=== PATIENT | male | born 1955 | race Caucasian/White ===

== ENCOUNTER 2018-02-15 12:39 | Observation (INO) | payer BC ==
[2018-02-15] MEDS ORDERED: IPRATROPIUM/ALBUTEROL 0.5-2.5 MG/3 ML AMPUL NEB ONE (13:15)
--- NOTE | 2018-02-15 13:19 | ER Document Report ---
ED Medical Screen (RME) - General Chief Complaint: Syncope Stated Complaint: WEAKNESS, SHORTNESS OF BREATH Time Seen by Provider: 02/15/18 13:07 Notes: 8-year-old male patient past history hypothyroid bones thyroid surgery, obstructive sleep apnea, hypertension, asthma recent diagnosis, hyperlipidemia. Reports traveling with a friend to [place] and along the way developed an inability to complete sentences, would forget what he was trying to say. When they arrived in [place] he got out of the car, stood up, felt dizzy and had a syncopal event. His friend caught him as he hit the ground and he did not strike his head. He was reportedly quite clammy, and complained of shortness of breath. He states it "took a while to feel back to normal". He reports this time he still does not feel completely normal, that he "feels out of it". He has shortness of breath. Brief exam shows wheezes predominantly on the left side. He does seem a little anxious. CT scan of the head, chest x-ray, DuoNeb treatments are ordered along with saline lock monitoring and lab work. I have greeted and performed a rapid initial assessment of this patient. A comprehensive ED assessment and evaluation of the patient, analysis of test results and completion of the medical decision making process will be conducted by additional ED providers. TRAVEL OUTSIDE OF THE [place] IN LAST 30 DAYS: No - Related Data Allergies/Adverse Reactions: No Known Allergies Allergy (Unverified 02/15/18 13:12) Past Medical History - Social History Chew tobacco use (# tins/day): No Frequency of alcohol use: None Drug Abuse: None Renal/ Medical History: Denies: Hx Peritoneal Dialysis Physical Exam - Vital signs Vitals: Temp Pulse Resp BP Pulse Ox 98.1 F 106 H 18 124/87 H 97 02/15/18 12:43 02/15/18 12:43 02/15/18 12:43 02/15/18 12:43 02/15/18 12:43 Course - Vital Signs Vital signs: Temp Pulse Resp BP Pulse Ox 98.1 F 106 H 18 124/87 H 97 02/15/18 12:43 02/15/18 12:43 02/15/18 12:43 02/15/18 12:43 02/15/18 12:43 - Laboratory Laboratory results interpreted by me: 02/15/18 12:47 POC Glucose 146 H
[2018-02-15 14:02] LABS: ABSOLUTE BASOPHILS # (AUTO) 0.1 10^3/uL (0.0-0.2); ABSOLUTE EOSINOPHILS # (AUTO) 0.5 10^3/uL (0.0-0.6); ABSOLUTE LYMPHOCYTES (AUTO) 1.7 10^3/uL (0.5-4.7); ABSOLUTE MONOCYTES (AUTO) 1.4 10^3/uL (0.1-1.4); ABSOLUTE NEUT (AUTO) 5.6 10^3/uL (1.7-8.2); BASOPHILS % (AUTO) 0.6 % (0-2); HEMATOCRIT 47.2 % (37.9-51.0); HEMOGLOBIN 15.9 g/dL (13.5-17.0); LYMPHOCYTES % (AUTO) 18.2 % (13-45); MEAN CORPUSCULAR HEMOGLOBIN 32.3 pg (27.0-33.4); MEAN CORPUSCULAR HGB CONC 33.7 g/dL (32.0-36.0); MEAN CORPUSCULAR VOLUME 96 fl (80-97); MONOCYTES % (AUTO) 14.9 % (3-13); PLATELET COUNT 251 10^3/uL (150-450); RED BLOOD COUNT 4.91 10^6/uL (4.35-5.55); SEGMENTED NEUTROPHILS % (AUTO) 61.3 % (42-78); TOTAL CELLS COUNTED % (AUTO) 100 %; WHITE BLOOD COUNT 9.2 10^3/uL (4.0-10.5)
[2018-02-15 14:21] LABS: ALANINE AMINOTRANSFERASE 33 U/L (21-72); ALBUMIN 4.7 g/dL (3.5-5.0); ALKALINE PHOSPHATASE 70 U/L (38-126); ANION GAP 12 (5-19); ASPARTATE AMINO TRANSFERASE 26 U/L (17-59); BILIRUBIN,DIRECT 0.3 mg/dL (0.0-0.4); BILIRUBIN,TOTAL 0.5 mg/dL (0.2-1.3); BLOOD UREA NITROGEN 28 mg/dL (7-20); CALCIUM 9.6 mg/dL (8.4-10.2); CARBON DIOXIDE 29 mmol/L (22-30); CHLORIDE 102 mmol/L (98-107); CREATINE KINASE 122 U/L (55-170); GLUCOSE 98 mg/dL (75-110); POTASSIUM 4.7 mmol/L (3.6-5.0); SODIUM 142.9 mmol/L (137-145); TOTAL PROTEIN 7.8 g/dL (6.3-8.2)
--- NOTE | 2018-02-15 14:37 | RADIOLOGY REPORT (SQ) ---
EXAM DESCRIPTION: CT HEAD WITHOUT COMPLETED DATE/TIME: 02/15/2018 2:04 pm REASON FOR STUDY: Confusion,difficulty completing sentences, syncope COMPARISON: None. TECHNIQUE: Axial images acquired through the brain without intravenous contrast. Images reviewed wi th bone, brain and subdural windows. Additional sagittal and coronal reconstructions were generated. Images stored on PACS. All CT scanners at this facility use dose modulation, iterative reconstruction, and/or weight based d osing when appropriate to reduce radiation dose to as low as reasonably achievable (ALARA). [facility]: Dose Right [facility]: CareDose [facility]: Dose Right [facility]: Teradose 4D [facility]: Smart [employer] RADIATION DOSE: CT Rad equipment meets quality standard of care and radiation dose reduction techniq ues were employed. CTDIvol: 53.2 mGy. DLP: 1070 mGy-cm. mGy. LIMITATIONS: None. FINDINGS: VENTRICLES: Normal size and contour. CEREBRUM: No masses. No hemorrhage. No midline shift. No evidence for acute infarction. Normal gra y/white matter differentiation. No areas of low density in the white matter. CEREBELLUM: No masses. No hemorrhage. No alteration of density. No evidence for acute infarction. EXTRAAXIAL SPACES: No fluid collections. No masses. ORBITS AND GLOBE: No intra- or extraconal masses. Normal contour of globe without masses. CALVARIUM: No fracture. PARANASAL SINUSES: No fluid or mucosal thickening. SOFT TISSUES: No mass or hematoma. OTHER: No other significant finding. IMPRESSION: NORMAL BRAIN CT WITHOUT CONTRAST. EVIDENCE OF ACUTE STROKE: NO. COMMENT: Quality ID # [id number]: Final reports with documentation of one or more dose reduction techniques (e.g., Automated exposure control, adjustment of the mA and/or kV according to patient size, use of iterative reconstruction technique) TECHNICAL DOCUMENTATION: JOB ID: [id number] [employer]- All Rights Reserved Reading location - IP/workstation name: [email or web address]
--- NOTE | 2018-02-15 14:55 | RADIOLOGY REPORT (SQ) ---
EXAM DESCRIPTION: CHEST 2 VIEWS COMPLETED DATE/TIME: 02/15/2018 2:17 pm REASON FOR STUDY: Wheezing, shortness of breath COMPARISON: 05/12/2010 EXAM PARAMETERS: NUMBER OF VIEWS: two views TECHNIQUE: Digital Frontal and Lateral radiographic views of the chest acquired. RADIATION DOSE: NA LIMITATIONS: none FINDINGS: LUNGS AND PLEURA: No opacities, masses or pneumothorax. No pleural effusion. MEDIASTINUM AND HILAR STRUCTURES: No masses or contour abnormalities. HEART AND VASCULAR STRUCTURES: Heart normal size. No evidence for failure. BONES: No acute findings. HARDWARE: None in the chest. OTHER: No other significant finding. IMPRESSION: NO ACUTE RADIOGRAPHIC FINDING IN THE CHEST. TECHNICAL DOCUMENTATION: JOB ID: [id number] [employer]- All Rights Reserved Reading location - IP/workstation name: [email or web address]
[2018-02-15] MEDS ORDERED: ASPIRIN 325 MG TABLET PO ONE (15:05)
--- NOTE | 2018-02-15 15:16 | ER Document Report ---
ED General - General Chief Complaint: Syncope Stated Complaint: WEAKNESS, SHORTNESS OF BREATH Time Seen by Provider: 02/15/18 13:07 Mode of Arrival: Ambulatory Information source: Patient Notes: 62-year-old male presents with complaints of sudden episode of confusion. Patient notes he was driving all of a sudden became dizzy lightheaded could not understand what he was, patient notes he stopped the car and had a syncopal episode TRAVEL OUTSIDE OF THE [place] IN LAST 30 DAYS: No - HPI Onset: Just prior to arrival Onset/Duration: Sudden Quality of pain: No pain Severity: Mild Pain Level: Denies Associated symptoms: Weakness, Other Exacerbated by: Denies Relieved by: Denies Similar symptoms previously: No Recently seen / treated by doctor: No - Related Data Allergies/Adverse Reactions: No Known Allergies Allergy (Unverified 02/15/18 13:12) Past Medical History - Social History Smoking Status: Never Smoker Cigarette use (# per day): No Chew tobacco use (# tins/day): No Smoking Education Provided: No Frequency of alcohol use: None Drug Abuse: None Family History: Reviewed & Not Pertinent Patient has suicidal ideation: No Patient has homicidal ideation: No Pulmonary Medical History: Reports: Hx Asthma, Hx Bronchitis Renal/ Medical History: Denies: Hx Peritoneal Dialysis Psychiatric Medical History: Reports: Hx Depression Past Surgical History: Reports: Hx Kidney (Renal Surgery) - lithotripsy, Hx Nose Surgery - rhinoplasty Review of Systems - Review of Systems Notes: REVIEW OF SYSTEMS: CONSTITUTIONAL : Denies fever, chills, or sweats. Denies recent illness. EENT: Denies eye, ear, throat, or mouth pain or symptoms. Denies nasal or sinus congestion or discharge. Denies throat, tongue, or mouth swelling or difficulty swallowing. CARDIOVASCULAR: Denies chest pain. Denies palpitations or racing or irregular heart beat. Denies ankle edema. RESPIRATORY: Denies cough, cold, or chest congestion. Denies shortness of breath, difficulty breathing, or wheezing. GASTROINTESTINAL: Denies abdominal pain or distention. Denies nausea, vomiting , or diarrhea. Denies blood in vomitus, stools, or per rectum. Denies black, tarry stools. Denies constipation. GENITOURINARY: Denies difficulty urinating, painful urination, burning, frequency, blood in urine, or discharge. MUSCULOSKELETAL: Denies back or neck pain or stiffness. Denies joint pain or swelling. SKIN: Denies rash, lesions or sores. HEMATOLOGIC : Denies easy bruising or bleeding. LYMPHATIC: Denies swollen, enlarged glands. NEUROLOGICAL: Admits to confusion PSYCHIATRIC: Denies anxiety or stress. Denies depression, suicidal ideation, or homicidal ideation. ALL OTHER SYSTEMS REVIEWED AND NEGATIVE. Dictation was performed using [employer] voice recognition software PHYSICAL EXAMINATION: GENERAL: Well-appearing, well-nourished and in no acute distress. HEAD: Atraumatic, normocephalic. EYES: Pupils equal round and reactive to light, extraocular movements intact, sclera anicteric, conjunctiva are normal. ENT: Nares patent, oropharynx clear without exudates. Moist mucous membranes. NECK: Normal range of motion, supple without lymphadenopathy LUNGS: Breath sounds clear to auscultation bilaterally and equal. No wheezes rales or rhonchi. HEART: Regular rate and rhythm without murmurs ABDOMEN: Soft, nontender, nondistended abdomen. No guarding, no rebound. No masses appreciated. Musculoskeletal: Normal range of motion, no pitting or edema. No cyanosis. NEUROLOGICAL: Cranial nerves grossly intact. Normal speech, normal gait. Normal sensory, motor exams PSYCH: Normal mood, normal affect. SKIN: Warm, Dry, normal turgor, no rashes or lesions noted. Physical Exam - Vital signs Vitals: Temp Pulse Resp BP Pulse Ox 98.1 F 106 H 18 124/87 H 97 02/15/18 12:43 02/15/18 12:43 02/15/18 12:43 02/15/18 12:43 02/15/18 12:43 Course - Re-evaluation Re-evalutation: 02/18/18 22:32 Currently patient is asymptomatic however given her presentation I do believe a CVA rule out is appropriate, I do believe he had a transient ischemic attack, patient is not a candidate for thrombolytics CT of the head was negative - Vital Signs Vital signs: Temp Pulse Resp BP Pulse Ox 98.6 F 118 H 16 101/74 92 02/18/18 16:19 02/18/18 16:19 02/18/18 16:19 02/18/18 16:19 02/18/18 16:19 - Laboratory Result Diagrams: 02/15/18 13:28 02/16/18 05:25 Laboratory results interpreted by me: 02/15/18 02/15/18 02/15/18 12:47 13:28 13:28 Monocytes % 14.9 H BUN 28 H Creatinine 1.28 H Est GFR (Non-Af Amer) 57 L POC Glucose 146 H - Diagnostic Test Radiology reviewed: Image reviewed - CT head without contrast noted no acute abnormality, Reports reviewed Discharge - Discharge Clinical Impression: TIA (transient ischemic attack) Qualifiers: Transient cerebral ischemia type: unspecified Qualified Code(s): G45.9 - Transient cerebral ischemic attack, unspecified Condition: Good Disposition: ADMITTED OBSERVATION Admitting Provider: Hospitalist Unit Admitted: IMCU
--- NOTE | 2018-02-15 15:35 | RADIOLOGY REPORT (SQ) ---
EXAM DESCRIPTION: CTA CHEST COMPLETED DATE/TIME: 02/15/2018 3:23 pm REASON FOR STUDY: sob COMPARISON: None. TECHNIQUE: CT scan of the chest performed using helical scanning technique with dynamic intravenous contrast injection. Images reviewed with lung, soft tissue and bone windows. Reconstructed coronal and sagittal MPR images reviewed. Additional 3 dimensional post-processing performed to develop Maximal Intensity Projection images (IA P). All images stored on PACS. All CT scanners at this facility use dose modulation, iterative reconstruction, and/or weight based d osing when appropriate to reduce radiation dose to as low as reasonably achievable (ALARA). [facility]: Dose Right [facility]: CareDose [facility]: Dose Right [facility]: Teradose 4D [facility]: Prescription Eyewear CONTRAST TYPE AND DOSE: contrast/concentration: Isovue 370.00 mg/ml; Total Contrast Delivered: 82.0 ml; Total Saline Delivered: 90.1 ml Contrast bolus optimized for the pulmonary arteries. Not diagnostic for the aorta. RENAL FUNCTION: Creatinine 1.28 RADIATION DOSE: CT Rad equipment meets quality standard of care and radiation dose reduction techniq ues were employed. CTDIvol: 16.5 - 23.1 mGy. DLP: 952 mGy-cm. . LIMITATIONS: None. FINDINGS: LUNGS AND PLEURA: No masses, infiltrates, pneumothorax. No pleural effusions, calcificati ons. AORTA AND GREAT VESSELS: No aneurysm. Contrast bolus not optimized for the aorta. HEART: No pericardial effusion. No significant coronary artery calcifications. PULMONARY ARTERIES: Heterogeneous low density in the distal main pulmonary arteries and extending int o the proximal lower lobe segmental branches bilaterally. Difficult to define well-circumscribed emb olus. While some of this may be artifact, the findings are considered concerning for nonocclusive cl ot. HILAR AND MEDIASTINAL STRUCTURES: No identified masses or abnormal nodes. HARDWARE: None in the chest. UPPER ABDOMEN: No significant findings. Limited exam. THYROID AND OTHER SOFT TISSUES: No masses. No adenopathy. BONES: No acute or significant finding. 3D MIPS: Confirm above findings. OTHER: No other significant finding. IMPRESSION: 1. Concerning for a subtle nonocclusive bilateral pulmonary embolus. COMMENT: Quality ID # [id number]: Final reports with documentation of one or more dose reduction techniques (e.g., Automated exposure control, adjustment of the mA and/or kV according to patient size, use of iterative reconstruction technique) TECHNICAL DOCUMENTATION: JOB ID: [id number] [email or web address]- All Rights Reserved Reading location - IP/workstation name: [email or web address]
--- NOTE | 2018-02-15 16:49 | PDOC H&P ---
History of Present Illness Admission Date/PCP: 02/15/18 15:30 LEROY SMITH MD Patient complains of: acute onset confusion and garbled speech History of Present Illness: BRITTNEE RICHARDSON is a 62 year old male with history of HTN, HLD, hypothyroidism, HUGO , and depression who presents to the ED for evaluation of acute mental status change. Patient was in usual health today. He was driving to [place] with his friend. Upon reaching his destination, he left the car and upon standing up noted "something was not right". He thinking became garbled, his speech altered , and felt very unsteady on his feet. After a few second, he had a near syncopal episode. He fell towards the ground but was caught by his friend. Did not hit his head. Denies LOC. States this has never happened before. Was placed back in car and drove back to [place] to the ER. Upon reaching here, has returned back to baseline. Notes that he has not been feeling well over the last 2-3 days. Was diagnosed with bronchitis. Also notes mild SOB and was diagnosed with asthma and sleep apnea (unclear how these diagnoses were made). Denies fevers, chills, CP, abdominal pain, NV. PO intake has been good. Does not feel dehydrated. In ER labs were largely unremarkable except for Cr 1.28 ( baseline unknown). CTH negative. Will admit to hospitalist service for TIA work up Past Medical History Cardiac Medical History: Reports: Hyperlipidema, Hypertension Pulmonary Medical History: Reports: Asthma, Bronchitis Psychiatric Medical History: Reports: Depression Social History Information Source: Patient Smoking Status: Never Smoker Frequency of Alcohol Use: None Hx Recreational Drug Use: No Hx Prescription Drug Abuse: No Family History Family History: Malignancy Parental Family History Reviewed: Yes - father with cancer Children Family History Reviewed: Yes Sibling(s) Family History Reviewed.: No Medication/Allergy Home Medications: Amitriptyline HCl 25 mg PO DAILY 02/15/18 Atorvastatin Calcium 20 mg PO DAILY 02/15/18 Bupropion HCl [Wellbutrin Xl] 150 mg PO DAILY 02/15/18 Escitalopram Oxalate 20 mg PO DAILY 02/15/18 Levothyroxine Sodium 75 mcg PO DAILY 02/15/18 Losartan Potassium [Cozaar] 200 mg PO DAILY 02/15/18 Meloxicam 7.5 mg PO DAILY 02/15/18 Omeprazole 40 mg PO DAILY 02/15/18 Tamsulosin HCl 0.4 mg PO DAILY 02/15/18 Allergies/Adverse Reactions: No Known Allergies Allergy (Unverified 02/15/18 13:12) Physical Exam Vital Signs: Temp Pulse Resp BP Pulse Ox 98.1 F 106 H 20 120/77 94 02/15/18 12:43 02/15/18 12:43 02/15/18 15:35 02/15/18 15:35 02/15/18 15:35 General appearance: PRESENT: no acute distress, obese Head exam: PRESENT: normocephalic Mouth exam: PRESENT: moist Respiratory exam: PRESENT: unlabored. ABSENT: tachypnea, wheezes Cardiovascular exam: PRESENT: +S1, +S2. ABSENT: systolic murmur, tachycardia GI/Abdominal exam: PRESENT: soft. ABSENT: tenderness Neurological exam: PRESENT: alert, awake, oriented to time, oriented to situation, CN II-XII grossly intact Psychiatric exam: PRESENT: appropriate affect Results Impressions: Chest X-Ray 02/15/18 13:15 IMPRESSION: NO ACUTE RADIOGRAPHIC FINDING IN THE CHEST. Head CT 02/15/18 13:15 IMPRESSION: NORMAL BRAIN CT WITHOUT CONTRAST. EVIDENCE OF ACUTE STROKE: NO. Chest/Abdomen CTA 02/15/18 15:04 IMPRESSION: 1. Concerning for a subtle nonocclusive bilateral pulmonary embolus. Assessment & Plan - Diagnosis (1) TIA (transient ischemic attack) Qualifiers: Transient cerebral ischemia type: unspecified Qualified Code(s): G45.9 - Transient cerebral ischemic attack, unspecified Is this a current diagnosis for this admission?: Yes Plan: Differential diagnosis includes TIA vs. syncope. Patient has risk factors including HTN, HLD, and obesity. Given uncertainty of etiology, will proceed with TIA work up including: - MRI Brain - Carotid dopplers - TTE - Labs: HgA1c, lipid profile - Received ASA 324mg in ED, continue ASA 81mg - Increased statin to Lipitor 40mg qhs - PT consult - platen builder up - Neuro checks every shift - Admit to obs (2) HTN (hypertension) Qualifiers: Hypertension type: essential hypertension Qualified Code(s): I10 - Essential (primary) hypertension Plan: Restarted home Cozaar in AM - Would be OK with permissive HTN until that period (3) HLD (hyperlipidemia) Plan: Checking lipid profile - Lipitor 40mg per above (4) Depression Is this a current diagnosis for this admission?: Yes Plan: Continue home Wellbutrin and Elavil - Time Time Spent: 50 to 70 Minutes Critical Time spent with patient: 15-24 minutes Anticipated discharge: Home Within: within 24 hours
--- NOTE | 2018-02-15 18:01 | RADIOLOGY REPORT (SQ) ---
EXAM DESCRIPTION: MRI HEAD WITHOUT COMPLETED DATE/TIME: 02/15/2018 5:30 pm REASON FOR STUDY: TIA COMPARISON: Its CT brain same date TECHNIQUE: Multiplanar imaging includes non-contrasted T1, T2, FLAIR, and diffusion with ADC map seq uences. Heme sensitive sequence. Images stored on PACS. LIMITATIONS: None. FINDINGS: ANATOMY: No anomalies. Normal vascular flow voids. Pituitary fossa normal. CSF SPACES: Normal in size and contour. No hemorrhage. CEREBRUM: Sulci and gyri normal in size and contour. Normal white matter signal on FLAIR imaging. No evidence of hemorrhage, mass, or extraaxial fluid collection. POSTERIOR FOSSA: No signal alteration. No hemorrhage. No edema, masses or mass effect. Internal ann tory canals, cerebello-pontine angles, mastoids normal. DIFFUSION IMAGING: Negative for acute or sub-acute infarction. ORBITS: No masses. Globes normal. PARANASAL SINUSES: No fluid levels. Mucosa normal. OTHER: No other significant finding. IMPRESSION: NORMAL MRI OF THE BRAIN WITHOUT INTRAVENOUS GADOLINIUM CONTRAST. EVIDENCE OF ACUTE STROKE: NO. TECHNICAL DOCUMENTATION: JOB ID: [id number]- All Rights Reserved Reading location - IP/workstation name: [email or web address]
[2018-02-15] MEDS ORDERED: ENOXAPARIN SODIUM INJ 40 MG/0.4 ML DISP.SYRIN SUBCUT ONE (20:00)
[2018-02-15] MEDS ORDERED: ALBUTEROL SULFATE HFA (90 MCG/PUFF) 200 PUFF/8.5 GM MDI IH PRN (21:48)
[2018-02-15] MEDS: AMITRIPTYLINE HCL 25 MG TABLET PO SCH (22:02)
[2018-02-15] MEDS: ATORVASTATIN CALCIUM 40 MG TABLET PO SCH (22:02)
[2018-02-15] MEDS: TAMSULOSIN HCL 0.4 MG CAP.SR.24H PO SCH (22:03)
[2018-02-16] MEDS: LEVOTHYROXINE SODIUM 0.075 MG TABLET PO SCH (05:20)
[2018-02-16 05:59] LABS: ANION GAP 12 (5-19); BLOOD UREA NITROGEN 20 mg/dL (7-20); CALCIUM 9.3 mg/dL (8.4-10.2); CARBON DIOXIDE 30 mmol/L (22-30); CHLORIDE 100 mmol/L (98-107); CHOLESTEROL 165.82 mg/dL (0-200); GLUCOSE 108 mg/dL (75-110); POTASSIUM 4.7 mmol/L (3.6-5.0); SODIUM 142.4 mmol/L (137-145); TRIGLYCERIDES 147 mg/dL (<150)
[2018-02-16 06:10] LABS: DIRECT LDL 82 mg/dL (<100)
[2018-02-16] MEDS: LOSARTAN POTASSIUM 50 MG TABLET PO SCH (09:46)
[2018-02-16] MEDS: LANSOPRAZOLE 30 MG TAB.RAP.DR PO SCH (09:46)
[2018-02-16] MEDS: ENOXAPARIN SODIUM INJ 40 MG/0.4 ML DISP.SYRIN SUBCUT SCH (09:47)
[2018-02-16] MEDS: BUPROPION HCL 100 MG TABLET PO SCH (09:47)
[2018-02-16] MEDS ORDERED: AMITRIPTYLINE HCL 25 MG TABLET PO SCH (10:00)
[2018-02-16] MEDS ORDERED: TAMSULOSIN HCL 0.4 MG CAP.SR.24H PO SCH (10:00)
[2018-02-16] MEDS ORDERED: BUPROPION HCL 150 MG PO SCH (10:00)
[2018-02-16] MEDS ORDERED: LOSARTAN POTASSIUM 200 MG PO SCH (10:00)
--- NOTE | 2018-02-16 11:37 | PDOC PROGRESS REPORT ---
Subjective Progress Note for:: 02/16/18 Subjective:: NO overnight events. Feeling at baseline. Had brain MRI. No speech deficits, focal weakness/numbness. No other complaints. Reason For Visit: TIA Physical Exam Vital Signs: Temp Pulse Resp BP Pulse Ox 97.7 F 91 18 139/90 H 98 02/16/18 07:12 02/16/18 08:00 02/16/18 08:00 02/16/18 08:00 02/16/18 08:00 Intake & Output 02/15/18 02/16/18 02/17/18 06:59 06:59 06:59 Intake Total 443 Output Total 425 Balance 18 Weight 107.2 kg General appearance: PRESENT: no acute distress, cooperative, obese Respiratory exam: PRESENT: unlabored. ABSENT: tachypnea Cardiovascular exam: PRESENT: +S1, +S2. ABSENT: tachycardia GI/Abdominal exam: PRESENT: soft. ABSENT: tenderness Extremities exam: PRESENT: full ROM Musculoskeletal exam: PRESENT: ambulatory Neurological exam: PRESENT: alert, awake, reflexes normal, CN II-XII grossly intact. ABSENT: motor sensory deficit, aphasic Psychiatric exam: PRESENT: appropriate affect Results Laboratory Results: 02/16/18 05:25 02/16/18 05:25 Sodium 142.4 Potassium 4.7 Chloride 100 Carbon Dioxide 30 Anion Gap 12 BUN 20 Creatinine 1.06 Est GFR ( Amer) > 60 Est GFR (Non-Af Amer) > 60 Glucose 108 Calcium 9.3 Triglycerides 147 Cholesterol 165.82 LDL Cholesterol Direct 82 VLDL Cholesterol 29.0 HDL Cholesterol 52 Impressions: Chest X-Ray 02/15/18 13:15 IMPRESSION: NO ACUTE RADIOGRAPHIC FINDING IN THE CHEST. Head CT 02/15/18 13:15 IMPRESSION: NORMAL BRAIN CT WITHOUT CONTRAST. EVIDENCE OF ACUTE STROKE: NO. Chest/Abdomen CTA 02/15/18 15:04 IMPRESSION: 1. Concerning for a subtle nonocclusive bilateral pulmonary embolus. Head MRI 02/15/18 16:08 IMPRESSION: NORMAL MRI OF THE BRAIN WITHOUT INTRAVENOUS GADOLINIUM CONTRAST. EVIDENCE OF ACUTE STROKE: NO. Assessment & Plan - Diagnosis (1) TIA (transient ischemic attack) Qualifiers: Transient cerebral ischemia type: unspecified Qualified Code(s): G45.9 - Transient cerebral ischemic attack, unspecified Is this a current diagnosis for this admission?: Yes Plan: Differential diagnosis includes TIA vs. syncope. Patient has risk factors including HTN, HLD, and obesity. Given uncertainty of etiology, will proceed with TIA work up including: - MRI Brain obtained and negative for acute pathology - Carotid dopplers and TTE pending - HgA1c 5.7% and lipid profile wnl - Received ASA 324mg in ED, continue ASA 81mg, Lipitor 40mg qhs - Discontinue quality assurance monitor chassis and neuro checks - Patient prefers for work up to be completed prior to discharge (2) HTN (hypertension) Qualifiers: Hypertension type: essential hypertension Qualified Code(s): I10 - Essential (primary) hypertension Is this a current diagnosis for this admission?: Yes Plan: BP's acceptable, continue home Cozaar (3) HLD (hyperlipidemia) Is this a current diagnosis for this admission?: Yes Plan: Lipid profile acceptable - Lipitor 40mg per above (4) Depression Is this a current diagnosis for this admission?: Yes Plan: Continue home Wellbutrin and Elavil (5) Obesity (BMI 30.0-34.9) Is this a current diagnosis for this admission?: Yes Plan: Encouraged healthy lifestyle (6) Pulmonary embolism Is this a current diagnosis for this admission?: Yes Plan: CT chest showed "subtle nonocclusive bilateral thrombus". D dimer was negative. Patient is a symptomatic. He has no VTE risk factors other than obesity. He has no previous history of DVT/PE. Wells score is 0 so change of VTE is very low. - Will NOT anti-coagulate - Will keep on ASA 81mg daily - Time Time Spent with patient: 15-24 minutes Anticipated discharge: Home Within: within 48 hours - After completion of all tests
[2018-02-16] MEDS: ASPIRIN 81 MG TABLET, CHEWABLE PO SCH (12:22)
[2018-02-16] MEDS: TAMSULOSIN HCL 0.4 MG CAP.SR.24H PO SCH (21:28)
[2018-02-16] MEDS: ATORVASTATIN CALCIUM 40 MG TABLET PO SCH (21:28)
[2018-02-16] MEDS: AMITRIPTYLINE HCL 25 MG TABLET PO SCH (21:28)
[2018-02-17] MEDS: LEVOTHYROXINE SODIUM 0.075 MG TABLET PO SCH (05:31)
[2018-02-17] MEDS: LOSARTAN POTASSIUM 50 MG TABLET PO SCH (09:29)
[2018-02-17] MEDS: LANSOPRAZOLE 30 MG TAB.RAP.DR PO SCH (09:29)
[2018-02-17] MEDS: BUPROPION HCL 100 MG TABLET PO SCH (09:29)
[2018-02-17] MEDS: ENOXAPARIN SODIUM INJ 40 MG/0.4 ML DISP.SYRIN SUBCUT SCH (09:30)
--- NOTE | 2018-02-17 12:02 | PDOC PROGRESS REPORT ---
Subjective Progress Note for:: 02/17/18 Subjective:: NO overnight events. Doing well. Denies speech deficits, focal weakness/ numbness. No other complaints. PO intake good. Ambulatory. Reason For Visit: TIA Physical Exam Vital Signs: Temp Pulse Resp BP Pulse Ox 97.7 F 105 H 20 133/71 H 98 02/17/18 07:08 02/17/18 07:08 02/17/18 07:08 02/17/18 07:08 02/17/18 07:08 Intake & Output 02/16/18 02/17/18 02/18/18 06:59 06:59 06:59 Intake Total 443 1636 Output Total 425 750 Balance 18 886 Weight 107.2 kg 107.2 kg General appearance: PRESENT: no acute distress, cooperative Mouth exam: PRESENT: moist Respiratory exam: PRESENT: unlabored Cardiovascular exam: PRESENT: +S1, +S2 GI/Abdominal exam: PRESENT: soft Neurological exam: PRESENT: alert, awake, CN II-XII grossly intact. ABSENT: abnormal gait, aphasic Psychiatric exam: PRESENT: appropriate affect Results Laboratory Results: 02/16/18 05:25 Impressions: Chest X-Ray 02/15/18 13:15 IMPRESSION: NO ACUTE RADIOGRAPHIC FINDING IN THE CHEST. Head CT 02/15/18 13:15 IMPRESSION: NORMAL BRAIN CT WITHOUT CONTRAST. EVIDENCE OF ACUTE STROKE: NO. Chest/Abdomen CTA 02/15/18 15:04 IMPRESSION: 1. Concerning for a subtle nonocclusive bilateral pulmonary embolus. Head MRI 02/15/18 16:08 IMPRESSION: NORMAL MRI OF THE BRAIN WITHOUT INTRAVENOUS GADOLINIUM CONTRAST. EVIDENCE OF ACUTE STROKE: NO. Assessment & Plan - Diagnosis (1) TIA (transient ischemic attack) Qualifiers: Transient cerebral ischemia type: unspecified Qualified Code(s): G45.9 - Transient cerebral ischemic attack, unspecified Is this a current diagnosis for this admission?: Yes Plan: Differential diagnosis includes TIA vs. syncope. Patient has risk factors including HTN, HLD, and obesity. Given uncertainty of etiology, will proceed with TIA work up including: - MRI Brain obtained and negative for acute pathology - Carotid dopplers and TTE pending, likely on Sunday 02/18 - HgA1c 5.7% and lipid profile wnl - Continue ASA 81mg, Lipitor 40mg qhs - Patient prefers for work up to be completed prior to discharge - D/c to home on 02/18 (2) HTN (hypertension) Qualifiers: Hypertension type: essential hypertension Qualified Code(s): I10 - Essential (primary) hypertension Is this a current diagnosis for this admission?: Yes Plan: BP's acceptable, continue home Cozaar (3) HLD (hyperlipidemia) Is this a current diagnosis for this admission?: Yes Plan: Lipid profile acceptable - Lipitor 40mg per above (4) Depression Is this a current diagnosis for this admission?: Yes Plan: Continue home Wellbutrin and Elavil (5) Obesity (BMI 30.0-34.9) Is this a current diagnosis for this admission?: Yes (6) Pulmonary embolism Is this a current diagnosis for this admission?: No Plan: CT chest showed "subtle nonocclusive bilateral thrombus". D dimer was negative. Patient is a symptomatic. He has no VTE risk factors other than obesity. He has no previous history of DVT/PE. Wells score is 0 so change of VTE is very low. - Will NOT anti-coagulate - Will keep on ASA 81mg daily - Time Time Spent with patient: Less than 15 minutes Anticipated discharge: Home Within: within 24 hours
[2018-02-17] MEDS: ASPIRIN 81 MG TABLET, CHEWABLE PO SCH (12:04)
[2018-02-17] MEDS: TAMSULOSIN HCL 0.4 MG CAP.SR.24H PO SCH (21:08)
[2018-02-17] MEDS: ATORVASTATIN CALCIUM 40 MG TABLET PO SCH (21:08)
[2018-02-17] MEDS: AMITRIPTYLINE HCL 25 MG TABLET PO SCH (21:08)
[2018-02-18] MEDS: LEVOTHYROXINE SODIUM 0.075 MG TABLET PO SCH (06:09)
[2018-02-18] MEDS: BUPROPION HCL 100 MG TABLET PO SCH (09:23)
[2018-02-18] MEDS: LANSOPRAZOLE 30 MG TAB.RAP.DR PO SCH (09:23)
[2018-02-18] MEDS: LOSARTAN POTASSIUM 50 MG TABLET PO SCH (09:24)
[2018-02-18] MEDS: ENOXAPARIN SODIUM INJ 40 MG/0.4 ML DISP.SYRIN SUBCUT SCH (09:28)
[2018-02-18] MEDS: ASPIRIN 81 MG TABLET, CHEWABLE PO SCH (12:33)
--- NOTE | 2018-02-18 15:18 | RADIOLOGY REPORT (SQ) ---
EXAM DESCRIPTION: CAROTID DOPPLER COMPLETED DATE/TIME: 02/18/2018 2:36 pm REASON FOR STUDY: TIA COMPARISON: None. TECHNIQUE: Grayscale ultrasound, Doppler velocity and spectra, and color Doppler images acquired of the extra-cranial carotid and vertebral arteries. Images stored on PACS. LIMITATIONS: None. FINDINGS: RIGHT CAROTID CCA Velocities: 55 centimeters/second ICA Velocities Peak systolic 52 cm/s. End diastolic 23 cm/s. Proximal ICA/CCA peak systolic ratio 0.9. Spectra normal. No significant plaque. LEFT CAROTID CCA Velocities: 136 centimeters/second ICA Velocities Peak systolic 79 cm/s. End diastolic 32 cm/s. Proximal ICA/CCA peak systolic ratio 1.6. Spectra normal. No significant plaque. VERTEBRAL ARTERIES: Antegrade flow. Normal waveforms. SUBCLAVIAN ARTERIES: No finding. OTHER: No other significant finding. IMPRESSION: NO HEMODYNAMICALLY SIGNIFICANT STENOSIS. COMMENT: Quality ID #[id number]: Velocity criteria are extrapolated from the diameter data as defined by t he Society of Radiologists in Ultrasound Consensus Conference. Radiology 2003: 229; 340-346. TECHNICAL DOCUMENTATION: JOB ID: [id number] [employer]- All Rights Reserved Reading location - IP/workstation name: [email or web address]
[2018-02-18 16:20] VITALS: BP 101/74
--- NOTE | 2018-02-18 18:07 | PDOC DISCHARGE SUMMARY ---
General - Admit/Disc Date/PCP Admission Date/Primary Care Provider: 02/15/18 15:30 LEROY SMITH MD Discharge Date: 02/18/18 - Discharge Diagnosis (1) TIA (transient ischemic attack) Is this a current diagnosis for this admission?: Yes Summary: MRI, carotid duplex and CT were negative. Patient's fasting lipid showed his HDL be 85 his cholesterol was increased to 40 mg daily does. Her to take aspirin 81 mg daily (2) HLD (hyperlipidemia) Is this a current diagnosis for this admission?: Yes Summary: Patient will increase his dose of atorvastatin to 40 mg daily. Discussed increasing exercise to increase his HDL above 60 (3) HTN (hypertension) Is this a current diagnosis for this admission?: Yes Summary: Continue home medications he is normotensive (4) Depression Is this a current diagnosis for this admission?: Yes Summary: Continue home medication (5) Obesity (BMI 30.0-34.9) Is this a current diagnosis for this admission?: Yes Summary: Counseled - Additional Information Resuscitation Status: Full Code Discharge Diet: Cardiac Discharge Activity: Activity As Tolerated Prescriptions: Atorvastatin Calcium [Lipitor 40 mg Tablet] 40 mg PO QHS #30 tablet Home Medications: Amitriptyline HCl 50 mg PO QHS 02/15/18 Bupropion HCl [Wellbutrin Xl] 450 mg PO DAILY 02/15/18 Escitalopram Oxalate 20 mg PO DAILY 02/15/18 Levothyroxine Sodium 75 mcg PO DAILY 02/15/18 Losartan Potassium [Cozaar] 100 mg PO DAILY 02/15/18 Meloxicam 15 mg PO QHS 02/15/18 Omeprazole 80 mg PO QHS 02/15/18 Tamsulosin HCl 0.4 mg PO HSP PRN 02/15/18 Atorvastatin Calcium [Lipitor 40 mg Tablet] 40 mg PO QHS #30 tablet 02/16/18 History of Present Illness Patient complains of: Acute onset of confusion and garbled speech History of Present Illness: BRITTNEE RICHARDSON is a 62 year old male with history of HTN, HLD, hypothyroidism, HUGO , and depression who presents to the ED for evaluation of acute mental status change. Patient was in usual health today. He was driving to [place] with his friend. Upon reaching his destination, he left the car and upon standing up noted "something was not right". He thinking became garbled, his speech altered , and felt very unsteady on his feet. After a few second, he had a near syncopal episode. He fell towards the ground but was caught by his friend. Did not hit his head. Denies LOC. States this has never happened before. Was placed back in car and drove back to [place] to the ER. Upon reaching here, has returned back to baseline. Notes that he has not been feeling well over the last 2-3 days. Was diagnosed with bronchitis. Also notes mild SOB and was diagnosed with asthma and sleep apnea (unclear how these diagnoses were made). Denies fevers, chills, CP, abdominal pain, NV. PO intake has been good. Does not feel dehydrated. In ER labs were largely unremarkable except for Cr 1.28 ( baseline unknown). CTH negative. Will admit to hospitalist service for TIA work up Patient was admitted to [facility] on telemetry. Neuro checks done overnight every 2 hours 4 and then every 44 and unremarkable. He had no further confusion or garbled speech. Today he underwent MRI the brain which was normal. Carotid duplex ultrasound which was normal as well. Transthoracic cardiogram which was reported by patent paralegal to be overall within normal limits. Report is pending dictation. Patient feels well he wishes to be discharged home. He will follow- up with his primary care provider within the next week. Physical Exam Vital Signs: Temp Pulse Resp BP Pulse Ox 98.6 F 118 H 16 101/74 92 02/18/18 16:19 02/18/18 16:19 02/18/18 16:19 02/18/18 16:19 02/18/18 16:19 Intake & Output 02/17/18 02/18/18 02/19/18 06:59 06:59 06:59 Intake Total 1636 1733 720 Output Total 750 Balance 886 1733 720 Weight 107.2 kg 106.1 kg General appearance: PRESENT: no acute distress, well-developed, well-nourished Head exam: PRESENT: atraumatic, normocephalic Eye exam: PRESENT: conjunctiva pink, EOMI, PERRLA. ABSENT: scleral icterus Ear exam: PRESENT: normal external ear exam Mouth exam: PRESENT: moist, tongue midline Neck exam: ABSENT: carotid bruit, JVD, lymphadenopathy, thyromegaly Respiratory exam: PRESENT: clear to auscultation molly. ABSENT: rales, rhonchi, wheezes Cardiovascular exam: PRESENT: RRR. ABSENT: diastolic murmur, rubs, systolic murmur Pulses: PRESENT: normal dorsalis pedis pul Vascular exam: PRESENT: normal capillary refill GI/Abdominal exam: PRESENT: normal bowel sounds, soft. ABSENT: distended, guarding, mass, organolmegaly, rebound, tenderness Rectal exam: PRESENT: deferred Extremities exam: PRESENT: full ROM. ABSENT: calf tenderness, clubbing, pedal edema Musculoskeletal exam: PRESENT: ambulatory, full ROM, normal inspection Neurological exam: PRESENT: alert, awake, oriented to person, oriented to place , oriented to time, oriented to situation, CN II-XII grossly intact. ABSENT: motor sensory deficit Psychiatric exam: PRESENT: appropriate affect, normal mood. ABSENT: homicidal ideation, suicidal ideation Skin exam: PRESENT: dry, intact, warm. ABSENT: cyanosis, rash Results Laboratory Results: 02/16/18 05:25 Impressions: Chest X-Ray 02/15/18 13:15 IMPRESSION: NO ACUTE RADIOGRAPHIC FINDING IN THE CHEST. Head CT 02/15/18 13:15 IMPRESSION: NORMAL BRAIN CT WITHOUT CONTRAST. EVIDENCE OF ACUTE STROKE: NO. Chest/Abdomen CTA 02/15/18 15:04 IMPRESSION: 1. Concerning for a subtle nonocclusive bilateral pulmonary embolus. Head MRI 02/15/18 16:08 IMPRESSION: NORMAL MRI OF THE BRAIN WITHOUT INTRAVENOUS GADOLINIUM CONTRAST. EVIDENCE OF ACUTE STROKE: NO. Carotid Doppler Study 02/18/18 00:00 IMPRESSION: NO HEMODYNAMICALLY SIGNIFICANT STENOSIS. Qualifiers - * PATIENT BEING DISCHARGED WITH ANY OF THE FOLLOWING DIAGNOSIS: No Plan Discharge Plan: Home with family follow-up with primary care provider in 1 week Time Spent: Less than 30 Minutes
--- NOTE | 2018-02-18 18:54 | XCELERA REPORT ---
[address] [address] Transthoracic Echocardiogram Report Name: BRITTNEE RICHARDSON Age: 62 yrs Gender: Male : 1955 Patient Status: Inpatient Patient Location: [address] [place] [address] Study Date: 02/18/2018 11:04 AM Height: 73 in Weight: 237 lb BSA: 2.3 m2 Procedure: A complete two-dimensional transthoracic echocardiogram was performed (2D, M-mode, spectral and color flow Doppler). The study was technically adequate with some images being suboptimal in quality. Reason For Study: TIA Ordering Physician: LONI GONZALEZ Performed By: Iris Ron Interpretation Summary The left ventricular ejection fraction is normal. There is mild concentric left ventricular hypertrophy. Doppler measurements suggest pseudonormalized left ventricular relaxation, which is associated with grade II/IV or mild to moderate diastolic dysfunction The left ventricle is grossly normal size. Wall motion cannot be accurately commented on, but no definite regional wall motion abnormalities noted. The right ventricle is borderline dilated. The right ventricular systolic function is normal. The right atrium is normal in size The left atrial size is normal. There is a trace amount of mitral regurgitation There is no mitral valve stenosis. There is no aortic valve stenosis No aortic regurgitation is present. There is a trace or physiologic amount of tricuspid regurgitation Tricuspid regurgitation jet envelope not well defined to measure RV systolic pressure accurately. The aortic root is not well visualized but is probably normal size. The inferior vena cava was not well visualized There is no pericardial effusion. MMode/2D Measurements & Calculations RVDd: 3.3 cm LVIDd: 4.4 cm FS: 37.0 % Ao root diam: 3.4 cm IVSd: 1.0 cm LVIDs: 2.8 cm EDV(Teich): 88.3 ml LVPWd: 0.98 cm ESV(Teich): 29.1 ml Ao root area: 9.3 cm2 EF(Teich): 67.1 % LA dimension: 3.4 cm Doppler Measurements & Calculations MV E max alta: MV P1/2t max alta: Ao V2 max: LV V1 max P.2 cm/sec 57.8 cm/sec 132.8 cm/sec 3.7 mmHg MV A max alta: MV P1/2t: 55.3 msec Ao max PG: LV V1 max: 86.4 cm/sec 7.1 mmHg 96.0 cm/sec MV E/A: 0.67 MVA(P1/2t): 4.0 cm2 MV dec slope: 306.2 cm/sec2 MV dec time: 0.20 sec PA V2 max: 73.1 cm/sec PA max P.1 mmHg Left Ventricle The left ventricle is grossly normal size. There is mild concentric left ventricular hypertrophy. The left ventricular ejection fraction is normal. Doppler measurements suggest pseudonormalized left ventricular relaxation, which is associated with grade II/IV or mild to moderate diastolic dysfunction. Wall motion cannot be accurately commented on, but no definite regional wall motion abnormalities noted. Right Ventricle The right ventricle is borderline dilated. There is normal right ventricular wall thickness. The right ventricular systolic function is normal. Atria The right atrium is normal in size. The left atrial size is normal. Interarterial septum not well visualized and not well dopplered. Cannot comment on ASD/PFO presence. Mitral Valve There is mild mitral annular calcification. There is no mitral valve stenosis. There is a trace amount of mitral regurgitation. Aortic Valve The aortic valve opens well. The aortic valve is not well visualized secondary to technical limitations. There is no aortic valve stenosis. No aortic regurgitation is present. Tricuspid Valve The tricuspid valve is not well visualized, but is grossly normal. There is no tricuspid stenosis. There is a trace or physiologic amount of tricuspid regurgitation. Tricuspid regurgitation jet envelope not well defined to measure RV systolic pressure accurately. Pulmonic Valve The pulmonic valve is not well visualized. Great Vessels The aortic root is not well visualized but is probably normal size. The inferior vena cava was not well visualized. Effusions There is no pericardial effusion. Incidental Findings No definite cardiac source of CVA/TIA noted on this particular trans- thoracic study. Consider LONG if clinically indicated. May consider mobile cardiac telemetry monitoring (MCT) for ruling out transient AFIB. : LONI GONZALEZ > Braeden Delarosa
== END 2018-02-18 17:20 | disposition home or self-care (01) ==
LOC: ER 12:39 → EH 15:30 → 3S 17:59
PROVIDERS: ADMIT Family Medicine; ATTEND Family Medicine
DX: G45.9 Transient cerebral ischemic attack, unspecified (principal); E78.5 Hyperlipidemia, unspecified; I10 Essential (primary) hypertension; F32.9 Major depressive disorder, single episode, unspecified; E66.9 Obesity, unspecified; E03.9 Hypothyroidism, unspecified; R55 Syncope and collapse; R06.02 Shortness of breath; R26.81 Unsteadiness on feet; R06.2 Wheezing; G47.33 Obstructive sleep apnea (adult) (pediatric); Z68.30 Body mass index [BMI] 30.0-30.9, adult; Z79.899 Other long term (current) drug therapy; Z87.09 Personal history of other diseases of the respiratory system
CPT/HCPCS: 94640; 99285; 36415 ×2; 82962; 82550; 85025; 80048; 80053; 84484; 83036; 85379; 80061; 93306; 93880; 70551; 71046; 70450; 71275; 94660 ×4; 97162; G0378 ×5; J3490 ×8; J1650 ×4; J7620

== ENCOUNTER 2018-03-03 15:57 | Emergency (ER) | payer BC ==
[2018-03-03] MEDS ORDERED: TETRACAINE HCL 0.5% OPH SOLN 2 ML OS ONE (16:11)
--- NOTE | 2018-03-03 16:12 | ER Document Report ---
ED Medical Screen (RME) - General Chief Complaint: Eye Injury Stated Complaint: LEFT EYE INJURY Time Seen by Provider: 03/03/18 16:11 Mode of Arrival: Ambulatory Information source: Patient Notes: 62-year-old man presents to the emergency room with left eye irritation. He states he was sitting down just watching his cats across the room when he felt something in his eye. The patient states that he did not feel anything going into his eye and that all of a sudden was irritating. He denies trauma. There is no drooling in the room. TRAVEL OUTSIDE OF THE [place] IN LAST 30 DAYS: No - HPI Onset: Just prior to arrival Onset/Duration: Sudden Quality of pain: Dull Severity: Moderate Pain Level: 3 Associated Symptoms: denies: Chest pain, Shortness of breath Exacerbated by: Denies Relieved by: Denies Similar symptoms previously: No Recently seen / treated by doctor: No - Related Data Allergies/Adverse Reactions: No Known Allergies Allergy (Verified 03/03/18 16:23) Past Medical History - General Information source: Patient - Social History Chew tobacco use (# tins/day): No Frequency of alcohol use: None Drug Abuse: None Lives with: Spouse/Significant other Family history: None - Past Medical History Cardiac Medical History: Reports: Hx Hypercholesterolemia, Hx Hypertension Pulmonary Medical History: Reports: Hx Asthma, Hx Bronchitis Neurological Medical History: Reports: Other - TIA Renal/ Medical History: Denies: Hx Peritoneal Dialysis Psychiatric Medical History: Reports: Hx Depression Past Surgical History: Reports: Hx Kidney (Renal Surgery) - lithotripsy, Hx Nose Surgery - rhinoplasty - Immunizations History of Influenza Vaccine for 07/2017 - 12/2017 Season: Yes Influenza Administration Date for 07/2017 - 12/2017 Season: 07/15/16 Review of Systems - Review of Systems Constitutional: denies: Chills, Fever EENT: See HPI, Eye pain, Tearing Cardiovascular: No symptoms reported Respiratory: No symptoms reported Gastrointestinal: No symptoms reported Genitourinary: No symptoms reported Male Genitourinary: No symptoms reported Musculoskeletal: No symptoms reported Skin: No symptoms reported Hematologic/Lymphatic: No symptoms reported Neurological/Psychological: No symptoms reported Physical Exam - Vital signs Vitals: Temp Pulse Resp BP Pulse Ox 98.8 F 97 20 147/94 H 97 03/03/18 15:58 03/03/18 15:58 03/03/18 15:58 03/03/18 15:58 03/03/18 15:58 Notes: 62-year-old man, alert and oriented 3, no acute distress Eye exam: Pupils equal and round and reactive to light. No evidence of a mid fixed, dilated pupil. The right conjunctiva is clear. The left conjunctiva is markedly injected Visual acuity: Equal in both eyes Tetracaine applied: Complete resolution of left eye irritation Anterior chamber: No obvious cells or flare Nestor-Pen: Pressure in the eye is 16 Fluoroscopy seen: Show some uptake over the cornea concerning for abrasion Course - Vital Signs Vital signs: Temp Pulse Resp BP Pulse Ox 98.8 F 97 20 147/94 H 97 03/03/18 15:58 03/03/18 15:58 03/03/18 15:58 03/03/18 15:58 03/03/18 15:58 Doctor's Discharge - Discharge Clinical Impression: Left corneal abrasion Condition: Stable Disposition: HOME, SELF-CARE Additional Instructions: Recommendations: Rest. Take pain medicines as needed. Take the eyedrops: 2 drops every 6 hours. At night to complete the ophthalmic ointment in the bottom of the eyelid to allow it to coat the eye. If you are unable to get into see your mailing manager tomorrow: Call Dr. Nova and let the gallery or museum attendant know you are in the emergency room for an abrasion to the eye and he wanted you seen today (Sunday). Return to the emergency room for any concerns of decreased vision or worsening pain in the eye. The pain medicine you're taking prescribed as a narcotic. There are several important things you should know about this medicine: 1. This medicine contains Tylenol: It is important that you do not take Tylenol (or acetaminophen) while on this medicine. Tylenol is metabolized by the liver and taking too much Tylenol (acetaminophen) can lay to liver damage and even liver failure. 2. Taking narcotics for too long can lead to physical and mental dependence. Take this medicine only if really needed and in the lowest quantity to achieve pain relief. 3. Do not drink alcohol while on this medicine. Alcohol interacts with narcotics and the combination can be dangerous. 4. Do not drive or operate machinery while on this medicine. 5. Narcotics do cause constipation, so drink plenty of fluids and daily stool softeners. Prescriptions: Oxycodone HCl/Acetaminophen [Percocet 5-325 mg Tablet] 1 - 2 tab PO ASDIR PRN # 15 tablet PRN Reason: Referrals: LARRY NOVA DO [ACTIVE STAFF] - Follow up as needed (This is the number for the eye doctor: call the office tomorrow and tell them that the ER doctor wanted you seen today because of a scratch to the eye.)
[2018-03-03] MEDS ORDERED: TETRACAINE HCL 0.5% OPH SOLN 2 ML ONE (16:14)
[2018-03-03] MEDS ORDERED: GENTAMICIN SULFATE 0.3% OPH SOLN 5 ML OD ONE (16:28)
[2018-03-03] MEDS ORDERED: GENTAMICIN SULFATE 0.3% OPH OINT 3.5 GM OD ONE (16:32)
[2018-03-03] MEDS ORDERED: GENTAMICIN SULFATE 0.3% OPH OINT 3.5 GM OS ONE (16:39)
[2018-03-03] MEDS ORDERED: OXYCODONE-ACETAMINOPHEN 5-325 MG TABLET PO ONE (16:45)
[2018-03-03 17:06] VITALS: BP 130/88
[2018-03-03] MEDS ORDERED: GENTAMICIN SULFATE 0.3% OPH SOLN (5 ML/ER DISP) OD SCH (18:00)
== END 2018-03-03 16:55 | disposition home or self-care (01) ==
LOC: ER 15:57
DX: S05.02XA Injury of conjunctiva and corneal abrasion without foreign body, left eye, initial encounter (principal); I10 Essential (primary) hypertension; J45.909 Unspecified asthma, uncomplicated; X58.XXXA Exposure to other specified factors, initial encounter
CPT/HCPCS: 99283; J3490 ×2

== ENCOUNTER 2018-05-12 13:49 | Emergency (ER) | payer BC ==
[2018-05-12] MEDS ORDERED: LIDOCAINE 1%/EPINEPHRINE INJ 20 ML VIAL INJ ONE (14:17)
--- NOTE | 2018-05-12 14:21 | ER Document Report ---
ED General - General Chief Complaint: Laceration Stated Complaint: LACERATION TO LEFT ARM Time Seen by Provider: 05/12/18 14:13 TRAVEL OUTSIDE OF THE [place] IN LAST 30 DAYS: No - HPI Notes: 63-year-old male, [id number], presents left forearm laceration. Patient was helping a friend move when actually struck a light fixture and the fixture glass fell striking him in his left forearm sustaining laceration. Unquantified amount of blood loss. Sharp achy pain, nonradiating. Tetanus is up-to-date within 5 years. Sudden onset. No other modifying factors, no other associated symptoms, no other provocative or palliative factors. - Related Data Allergies/Adverse Reactions: No Known Allergies Allergy (Verified 05/12/18 13:50) Past Medical History - General Information source: Patient - Social History Smoking Status: Smoker,Current Status Unk Frequency of alcohol use: None Family History: Reviewed & Not Pertinent - Past Medical History Cardiac Medical History: Reports: Hx Hypercholesterolemia, Hx Hypertension Pulmonary Medical History: Reports: Hx Asthma, Hx Bronchitis Renal/ Medical History: Denies: Hx Peritoneal Dialysis Psychiatric Medical History: Reports: Hx Depression Past Surgical History: Reports: Hx Kidney (Renal Surgery) - lithotripsy, Hx Nose Surgery - rhinoplasty Review of Systems - Review of Systems Notes: Review of systems as in history of present illness, otherwise no significant headache, chest pain, abdominal pain. Physical Exam - Vital signs Vitals: Temp Pulse Resp BP Pulse Ox 99.0 F 111 H 16 131/77 H 96 05/12/18 14:06 05/12/18 14:06 05/12/18 14:06 05/12/18 14:06 05/12/18 14:06 - Notes Notes: General: Well devloped, no acute distress. HEENT: Normocephalic, atraumatic. Pupils equal round reactive to light. Mucosa moist. No JVD. Chest: No trauma, normal excursion. Respiratory: Good air exchange, normal excursion. Cardiac: Regular rhythm Abdomen: Soft, benign. Nondistended. Back: No asymmetry or gross abnormality. Motor: Grossly normal power and tone. Neurologic: Alert, nonfocal. Vascular: Well perfused Skin: No petechiae or purpura Extremities: Approximately a 6 cm curvilinear laceration with control bleeding. Course - Re-evaluation Re-evalutation: 05/12/18 14:20 Well-appearing male with the after mentioned symptoms. No sign of tenderness nerve or vascular disruption. Plan to proceed with wound repair after appropriate exploration to evaluate for underlying foreign body, tendon or nerve injury. 05/12/18 14:59 Wound is repaired as described below. Patient will have sutures removed in approximately 10 days. Procedure note: After anesthesia with 1% lidocaine with epinephrine wound is irrigated copiously with normal saline and explored. No evidence of tenderness , vascular or nerve disruption. No evidence of foreign body. I am able to visualize the depth of the wound. There is adequate hemostasis. Wound is then closed using simple interrupted sutures of 5-0 Ethilon. There is good tissue approximation and cosmesis, a total of 6 cm of wound closure is achieved. Note that prior to wound closure, the patient is put through active range of motion at his wrist fingers while the wound is explored. 05/12/18 15:01 - Vital Signs Vital signs: Temp Pulse Resp BP Pulse Ox 99.0 F 111 H 16 131/77 H 96 05/12/18 14:06 05/12/18 14:06 05/12/18 14:06 05/12/18 14:06 05/12/18 14:06 Discharge - Discharge Clinical Impression: Forearm laceration Qualifiers: Encounter type: initial encounter Laterality: left Qualified Code(s): S51.812A - Laceration without foreign body of left forearm, initial encounter Disposition: HOME, SELF-CARE Instructions: Laceration Care (OM) Additional Instructions: Sutures to be removed in 10 days Referrals: LEROY SMITH MD [Primary Care Provider] - Follow up as needed
[2018-05-12 15:22] VITALS: BP 124/86
== END 2018-05-12 16:00 | disposition home or self-care (01) ==
LOC: ER 13:49
DX: S51.812A Laceration without foreign body of left forearm, initial encounter (principal); W25.XXXA Contact with sharp glass, initial encounter; Y93.E6 Activity, residential relocation; I10 Essential (primary) hypertension; J45.909 Unspecified asthma, uncomplicated
CPT/HCPCS: 99282; 12002; J3490

== ENCOUNTER 2020-01-20 15:33 | Emergency (ER) | payer BC ==
--- NOTE | 2020-01-20 15:48 | ER Document Report ---
HPI - HPI Time Seen by Provider: 01/20/20 15:42 Notes: CHIEF COMPLAINT: Left foot and ankle injury 4 days ago HPI: 64-year-old male presenting to the emergency department complaining of left foot and ankle injury 4 days ago. Patient states that he twisted the left foot and ankle complains of pain to the medial aspect of the proximal left foot and ankle region especially with weightbearing, states he has been able to walk but is having some difficulty because of discomfort. No proximal lower leg pain denies numbness or tingling in the toes ROS: See HPI - all other systems were reviewed and are otherwise negative Constitutional: no fever Integumentary: no rash Allergy: no hives Musculoskeletal: + extremity pain or swelling Neurological: no numbness/tingling, no weakness MEDICATIONS: I agree with the patient medications as charted by the RN. ALLERGIES: I agree with the allergies as charted by the RN. PAST MEDICAL HISTORY/PAST SURGICAL HISTORY: Reviewed and agree as charted by RN. SOCIAL HISTORY: Reviewed and agree as charted by RN. FAMILY HISTORY: No significant familial comorbid conditions directly related to patient complaint EXAM: Reviewed vital signs as charted by RN. CONSTITUTIONAL: Alert and oriented and responds appropriately to questions. Well-appearing; well-nourished HEAD: Normocephalic; atraumatic EYES: Conjunctivae clear, sclerae non-icteric ENT: normal nose; no rhinorrhea; moist mucous membranes NECK: Supple without meningismus CARD: symmetric distal pulses RESP: Normal chest excursion without splinting or tachypnea ABD/GI: non-distended. BACK: The back appears normal EXT: Normal ROM in all joints; no cyanosis, no effusions, there is slight soft tissue swelling over the medial aspect of the left foot with tenderness on palpation in the navicular region. Dorsalis pedis and posterior tibial pulses are present in the left foot and ankle. There is no direct tenderness on palpation of the medial and lateral malleolus. There is no proximal fibular pain on palpation of the left lower extremity. Sensation is intact in the toes with capillary refill less than 3 seconds SKIN: Normal color for age and race; warm; dry; good turgor; no acute lesions noted NEURO: Moves all extremities equally; Motor and sensory function intact PSYCH: The patient's mood and manner are appropriate. Grooming and personal hygiene are appropriate. MDM: 64-year-old male with injury to the medial aspect of the left foot primarily. Will obtain x-ray for fracture Past Medical History - Social History Smoking Status: Unknown if Ever Smoked Family History: Reviewed & Not Pertinent - Past Medical History Cardiac Medical History: Reports: Hx Hypercholesterolemia, Hx Hypertension Pulmonary Medical History: Reports: Hx Asthma, Hx Bronchitis Renal/ Medical History: Denies: Hx Peritoneal Dialysis Psychiatric Medical History: Reports: Hx Depression Past Surgical History: Reports: Hx Kidney (Renal Surgery) - lithotripsy, Hx Nose Surgery - rhinoplasty Vertical Provider Document - INFECTION CONTROL TRAVEL OUTSIDE OF THE [place] IN LAST 30 DAYS: No Course - Re-evaluation Re-evalutation: 01/20/20 16:34 X-ray imaging does not show evidence of fracture. Discussed with the patient. Will discharge home he has been weightbearing on it, treat for foot or ankle sprain, follow-up orthopedics. Patient was mildly tachycardic on initial presentation will have nursing recheck vital signs and notify me of any abnormalities prior to discharge - Vital Signs Vital signs: Temp Pulse Resp BP Pulse Ox 98.5 F 114 H 18 128/69 H 98 01/20/20 15:37 01/20/20 15:37 01/20/20 15:37 01/20/20 15:37 01/20/20 15:37 Discharge - Discharge Clinical Impression: Sprain of foot, left Qualifiers: Encounter type: initial encounter Qualified Code(s): S93.602A - Unspecified sprain of left foot, initial encounter Condition: Stable Disposition: HOME, SELF-CARE Additional Instructions: Ice the foot and ankle 2-3 times daily for 5 to 10 minutes at a time to help with swelling and pain. X-ray did not show evidence of a fracture or broken bone today. Take Motrin or Tylenol consistently for pain. Follow-up with orthopedics for further evaluation if you continue to have discomfort Referrals: LEROY SMITH MD [Primary Care Provider] - Follow up as needed HERBERT UGARTE MD [ACTIVE STAFF] - Follow up as needed
--- NOTE | 2020-01-20 16:29 | RADIOLOGY REPORT (SQ) ---
EXAM DESCRIPTION: ANKLE LEFT COMPLETE IMAGES COMPLETED DATE/TIME: 01/20/2020 3:56 pm REASON FOR STUDY: fall COMPARISON: None. NUMBER OF VIEWS: Three views. TECHNIQUE: AP, lateral, and oblique radiographic images acquired of the left ankle. LIMITATIONS: None. FINDINGS: MINERALIZATION: Normal. BONES: No acute fracture or dislocation. No worrisome bone lesions. JOINTS: No effusions. SOFT TISSUES: No soft tissue swelling. No foreign body. OTHER: No other significant finding. IMPRESSION: NEGATIVE STUDY OF THE LEFT ANKLE. NO RADIOGRAPHIC EVIDENCE OF ACUTE INJURY. TECHNICAL DOCUMENTATION: JOB ID: [id number] 2010 [employer]- All Rights Reserved Reading location - IP/workstation name: [email or web address]
--- NOTE | 2020-01-20 16:30 | RADIOLOGY REPORT (SQ) ---
EXAM DESCRIPTION: FOOT LEFT COMPLETE IMAGES COMPLETED DATE/TIME: 01/20/2020 3:56 pm REASON FOR STUDY: fall medial foot pain COMPARISON: None. NUMBER OF VIEWS: Three views. TECHNIQUE: AP, lateral and oblique radiographic images acquired of the left foot. LIMITATIONS: None. FINDINGS: MINERALIZATION: Normal. BONES: No fracture or dislocation. Small plantar calcaneal spur. JOINTS: Degenerative joint changes in the 1st interphalangeal joint SOFT TISSUES: No soft tissue swelling. No foreign body. OTHER: No other significant finding. IMPRESSION: Degenerative joint disease. Calcaneal spur. No acute finding. TECHNICAL DOCUMENTATION: JOB ID: [id number] 2010 [employer]- All Rights Reserved Reading location - IP/workstation name: [email or web address]
[2020-01-20 16:41] VITALS: BP 134/86
== END 2020-01-20 16:50 | disposition home or self-care (01) ==
LOC: ER 15:33
DX: S93.602A Unspecified sprain of left foot, initial encounter (principal); M25.572 Pain in left ankle and joints of left foot; X50.0XXA Overexertion from strenuous movement or load, initial encounter; Y93.39 Activity, other involving climbing, rappelling and jumping off; R00.0 Tachycardia, unspecified; I10 Essential (primary) hypertension; J45.909 Unspecified asthma, uncomplicated
CPT/HCPCS: 99283